=== PATIENT | male | born 1990 | race Hispanic/Latino ===

== ENCOUNTER 2017-05-15 21:14 | Emergency (ER) | payer OTHER ==
[2017-05-15 21:56] LABS: Bilirubin Negative (Negative); Blood, Urine Negative (Negative); Clarity CLEAR (Clear); Glucose, Urine (Dipstick) Negative (Negative); Leukocyte Negative (Negative); Nitrite Negative (Negative); Protein, Urine (Dipstick) Negative (Neg-Trace); Specific Gravity, Urine 1.014 (1.002-1.036); pH, Urine 7.5 (5.0-9.0)
[2017-05-15 22:08] LABS: #Basophils 0.1 thou/uL (0.0-0.2); #Eosinphils 0.1 thou/uL (0.0-0.7); #Lymphocytes 3.2 thou/uL (1.20-3.40); #Monocytes 0.6 thou/uL (0.11-0.59); %Basophils 1.2 % (0.0-1.0); %Eosinophils 1.5 % (0.0-10.0); %Lymphocytes 39.8 % (21.0-51.0); %Monocytes 7.5 % (0.0-10.0); Hemoglobin 16.7 g/dL (14.0-18.0); Mean Corpuscular HGB CONC 34.7 g/dL (32.0-36.0); Mean Corpuscular Hemoglobin 35.1 pg (27.0-31.0); Mean Platelet Volume 8.6 fL (7.4-10.4); Platelet Count 241 thou/uL (130-400); RBC Distribution Width 11.6 % (11.5-14.5); Red Blood Cell (RBC) Count 4.74 mill/uL (4.70-6.10)
[2017-05-15 22:33] LABS: ALT (SGPT) 37 U/L (8-55); AST (SGOT) 31 U/L (5-34); Albumin 4.6 g/dL (3.5-5.0); Alkaline Phosphatase 62 U/L (40-150); Anion Gap 15 mmol/L (10-20); BUN (Urea Nitrogen) 13 mg/dL (8.9-20.6); Bilirubin, Total 0.4 mg/dL (0.2-1.2); Calc. Creatinine Clearance 0 mL/min (70-130); Calcium 9.6 mg/dL (7.8-10.44); Carbon Dioxide 24 mmol/L (22-29); Chloride 102 mmol/L (98-107); Estimated GFR-MDRD 88; Globulin 3.4 g/dL (2.4-3.5); Glucose 94 mg/dL (70-105); Potassium 3.9 mmol/L (3.5-5.1); Sodium 137 mmol/L (136-145)
--- NOTE | 2017-05-15 23:07 | CT ---
CT ABDOMEN AND PELVIS WITHOUT CONTRAST 05/15/17 PROVIDED CLINICAL HISTORY: Left flank pain. FINDINGS: The visualized lung bases are free of significant opacity. The solid abdominal organs are suboptimally evaluated with out IV contrast and demonstrate an unremar kable unenhanced CT appearance. No evidence for urinary tract calculi or hydronephrosis. No bowel dilatation, inflammatory fat stranding, free fluid, or free air apparent. The appendix appea rs normal. The osseous structures demonstrate no concerning osteoblastic or osteolytic lesions. IMPRESSION: No evidence for urinary tract calculi or hydronephrosis. POS: [facility]
== END 2017-05-16 00:36 | disposition home or self-care (01) ==
LOC: ERS 21:14
DX: M54.5 Low back pain (principal); F41.9 Anxiety disorder, unspecified; F31.9 Bipolar disorder, unspecified
CPT/HCPCS: 36415; 36416; 74176; 80053; 81003; 85025

== ENCOUNTER 2017-07-31 20:22 | Inpatient (IN) | payer OTHER ==
[2017-07-31 22:00] LABS: #Eosinphils 0.1 thou/uL (0.0-0.7); #Lymphocytes 1.5 thou/uL (1.20-3.40); #Monocytes 0.4 thou/uL (0.11-0.59); #Neutrophils 10.4 thou/uL (1.40-6.50); %Basophils 0.2 % (0.0-1.0); %Eosinophils 0.6 % (0.0-10.0); %Lymphocytes 11.9 % (21.0-51.0); %Neutrophils 84.3 % (42.0-75.0); Hemoglobin 14.6 g/dL (14.0-18.0); Mean Corpuscular Hemoglobin 33.6 pg (27.0-31.0); Mean Platelet Volume 7.9 fL (7.4-10.4); Platelet Count 396 thou/uL (130-400); RBC Distribution Width 11.6 % (11.5-14.5); Red Blood Cell (RBC) Count 4.35 mill/uL (4.70-6.10); White Blood Cell (WBC) Count 12.4 thou/uL (4.8-10.8)
[2017-07-31 22:17] LABS: Anion Gap 14 mmol/L (10-20); BUN (Urea Nitrogen) 11 mg/dL (8.9-20.6); Calc. Creatinine Clearance 0 mL/min (70-130); Calcium 9.2 mg/dL (7.8-10.44); Carbon Dioxide 25 mmol/L (22-29); Chloride 105 mmol/L (98-107); Estimated GFR-MDRD 85; Glucose 114 mg/dL (70-105); Magnesium 1.9 mg/dL (1.6-2.6); Potassium 3.5 mmol/L (3.5-5.1); Sodium 140 mmol/L (136-145)
--- NOTE | 2017-07-31 23:12 | CT ---
CT OF HEAD NONCONTRAST: 07/31/17 INDICATION: Headache. FINDINGS: Ventricular system is normal in size. Septum pellucidum and third ventricle are midline. No intracran ial hemorrhage, mass effect or midline shift. Mild mucosal thickening seen within the paranasal sinus es. IMPRESSION: No acute intracranial abnormalities. POS: [facility]
--- NOTE | 2017-08-01 02:51 | HP ---
DATE OF ADMISSION: 08/01/2017 CHIEF COMPLAINT: Numbness of the face and weakness. 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 The patient was in his usual state of health until 2 weeks ago. He had a viral fe nahid with cough, nausea, vomiting, body pains, typical flu symptoms and following this and since last Saturday, he noticed swelling in his neck and following which he was noting he has extreme difficulty o pening his mouth wide or working with his upper lips to hold on to this jaw and having some difficult y eating with drooling of oral secretions. This has been progressively getting worse since last ay. Until today, he went to his primary care physician who suggested the patient to go to the ER for further evaluation. When the patient was seen in the ER, he was having rash on his face which accor ding to him is getting worse for the past 2 weeks and the rash is typical of a lupus rash with erythe matous margins. He has a past history of vasculitis as described above. The patient had a CT of the head to rule out any evidence of acute stroke, which was negative and Dr. Glass has been consulted fr om the ER who was suggesting for evaluation of a multiple sclerosis. On further questioning, he also complained of increased cold intolerance and he has been feeling excessively cold and tired and very sleepy for the past few days. He does have a strong family history of thyroid problems in his mothe r's side. He denies having any nausea, vomiting, no diarrhea, no constipation. He does have a severe headache. He rates the headache as 7/10 in intensity, which is progressively getting worse and he tried takin g Excedrin which was helping the headaches. He denies having any dizziness or vision changes. He co ntinues to have problems with smell and taste on his tongue. PAST MEDICAL HISTORY: Kawasaki disease 1 years old. PAST SURGICAL HISTORY: None. SOCIAL HISTORY: No smoking. No history of alcohol, no history of illicit drug use. He lives with h is mother. FAMILY HISTORY: No significant family history of coronary artery disease as his father is adopted, b ut otherwise father is healthy and does not have any acute medical issues. On the mother's side, the patient has a history of breast cancer and the mother's sister who recently, but otherwise she also has a history of thyroid runs in their family. REVIEW OF SYSTEMS: All 12 systems are reviewed with the patient thoroughly and found to be negative except the ones described in the HPI. PHYSICAL EXAMINATION: VITAL SIGNS: Blood pressure is 128/80, heart rate is 88, respirations 18, saturation 98%. GENERAL: The patient is seen lying in the bed supine, does not appear to be in acute distress. CARDIOVASCULAR: S1, S2 normal. No murmurs, rubs or gallops. HEENT: Atraumatic, normocephalic. PERRLA. Extraocular movements were intact, but does have erythem a of the eyes. The patient wears contacts. Skin on the face has erythema bilaterally on the cheeks with erythematous margins and central clearing. Oral cavity is normal with no evidence of any tonsil lar enlargements. CARDIOVASCULAR: S1, S2 normal. No murmurs, rubs or gallops. LUNGS: Bilateral air entry was equal. No wheezing, no crackles. NECK: No thyromegaly. Small lymph node was noted on the left side of the neck anteriorly, otherwise no thyroid enlargement was noted. CENTRAL NERVOUS SYSTEM: Cranial nerve examination II through XII were intact. There is focal defici t on the face. The patient was having some paresthesias and weakness of his upper and lower lips marcelino ble to approximate the lips to hold straw and has a weak suction according to the patient. LYMPHADENOPATHY: No generalized lymph nodes were noted. PSYCHIATRIC: No signs of suicidal ideation. No signs of abdulaziz. No signs of depression. LABORATORY DATA: WBC 12.4, hemoglobin is 14.6, hematocrit is 44.2, platelets are 396. Sodium is 140 , potassium 3.5, chloride is 105, BUN is 11, creatinine 1.04. ESR was noted to be 14. CT of the head was negative for any intracranial hemorrhage. ASSESSMENT: 1. Possible transient ischemic attack. 2. Possible multiple sclerosis. 3. Possible thyroid disease. 4. Possible vasculitis or lupus. PLAN: 1. The patient has multiple possibilities based on his current presentation. Consulted Neurology be cause of the complex case who suggested the patient to be evaluated for multiple sclerosis. Plan to do an MRI of the brain and the cervical spine with and without contrast. We will closely monitor the patient overnight with neuro checks and will do a speech evaluation in the morning. 2. The patient has a history of vasculitis in the childhood so need to evaluate. We will do an SAMMIE and double stranded DNA antibodies to look for any evidence of lupus or any systemic vasculitis. 3. The patient will be evaluated for thyroid problem which has signs of cold intolerance and thicken ed dry skin. We will do a TSH and free T4. 4. Patient has elevated white cells. We will do his inflammatory workup with a CRP and procalcitoni n and ESR. 5. DVT prophylaxis is Lovenox. I spent 75 minutes with this patient.
[2017-08-01] MEDS ORDERED: Acetaminophen 325 MG TAB PO PRN (05:09)
[2017-08-01] MEDS ORDERED: Ondansetron ODT 4 MG TAB PO PRN (05:09)
[2017-08-01] MEDS ORDERED: hydrALAZINE 20 MG/ML VIAL SLOW IVP PRN (05:09)
[2017-08-01] MEDS ORDERED: HYDROcodone/Acetaminophen 5/325 mg Tablet PO PRN (05:09)
[2017-08-01 06:42] VITALS: BMI 26.9
[2017-08-01] MEDS ORDERED: Enoxaparin Sodium 40 MG/0.4 ML SYRINGE SC SCH (09:00)
[2017-08-01] MEDS ORDERED: Famotidine 20 MG TAB PO SCH (09:00)
[2017-08-01] MEDS ORDERED: Aspirin 81 mg Enteric Coated Tablet PO SCH (09:00)
--- NOTE | 2017-08-01 10:53 | MRI ---
PRE AND POSTCONTRAST ENHANCED MRI IMAGES BRAIN: HISTORY: Weakness, numbness upper lip. FINDINGS: Pre- and postcontrast-enhanced MRI images of the brain obtained. Images demonstrate no evidence of areas of diffusion restriction. No evidence of acute intracranial masses, hemorrhages, strokes, or contusions seen. The ventricles are of normal size. IMPRESSION: Unremarkable pre- and [id number] MRI images of the brain. POS: [facility]
--- NOTE | 2017-08-01 11:19 | MRI ---
MRI CERVICAL SPINE: HISTORY: Weakness, possible MS. FINDINGS: Multiplanar, multisequence, noncontrast-enhanced MRI images cervical spine obtained. Images obtained before and after administration of IV contrast. Images demonstrate the spinal cord to be unremarkable with no evidence of cord masses or lesions. C1-2, C2-3, C3-4, C4-5: Unremarkable. C5-6: No evidence of central disk protrusion seen. The right neural foramen is patent. There is mo derate left C5-6 neural foraminal narrowing due to uncovertebral and possible disk protrusion extendi ng to the left C5-6 neural foramen compressing the exiting left C6 nerve root. C6-7: There is a mild broad-based disk bulge. No evidence of significant central or neural foramina l narrowing is seen. C7-T1: Unremarkable. IMPRESSION: Left C5-6 foraminal disk-osteophyte complex extending into the left C5-6 neural foramen. POS: [facility]
[2017-08-01 11:35] LABS: CRP (Inflammatory) 3.49 mg/dL (= or < 0.5); Cardiac Risk 3.9 (Less than 4.5)
[2017-08-01 11:49] LABS: Free T4 (Free Thyroxine) 0.85 ng/dL (0.70-1.48); Thyroid Stimulating Hormone 2.2795 uIU/mL (0.35-4.94)
[2017-08-01 12:00] LABS: Folate (Folic Acid) 7.9 ng/mL (7.0-31.4)
[2017-08-01] MEDS ORDERED: Gadobenate Dimeglumine 529 MG/1 ML (20ML VIAL) ONE (13:56)
[2017-08-01 17:00] LABS: Syphilis Antibody Nonreactive (Nonreactive); Syphilis Antibody Index 0.07 S/CO (<1.00 Non-Reactive)
[2017-08-01 17:01] LABS: HIV (1/2) Antibody/Antigen Non-Reactive (NonReactive); HIV 1/2 INDEX 0.15 S/CO (<1.00)
--- NOTE | 2017-08-01 18:17 | CON ---
DATE OF CONSULTATION: 08/01/2017 REASON: Bilateral facial palsy. HISTORY OF PRESENT ILLNESS: A 26-year-old patient, first admission to [facility] who has a history of Kawasaki disease at the age of 1. After that, no problems with his health until 2 weeks prior to admission when he developed fever with cough and some nausea, body aches. He had returned from a trip to [place] where he went to visit a park with a friend. He did not go fishing, does not remember any particular insect bite. After this brief respiratory illness, he recovered his health status until about 4 days before admission when he developed weakness of the facial area, both right and left side with inability to formally oppose his lips. Decrease in sensation of taste in his mouth and inability to hold fluids within his oral cavity and with drooling. Subsequently, developed skin eruption in the facial area. No headaches, no visual symptoms. No diplopia. No nasal symptoms or hearing problems, no tinnitus: No neck pain or cough or sputum production, no chest pain, no dyspnea. No abdominal pain or diarrhea. No genitourinary symptoms. No joint symptoms. No other skin disorder. Strength in upper and lower extremities is preserved. Cognitive function is preserved. PAST MEDICAL HISTORY: Kawasaki disease at the age of 1. PAST SURGICAL HISTORY: Negative. 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 Lives in town with family. No smoking history. He is sexually active with a girlfriend. No drug use. FAMILY HISTORY: Noncontributory. ALLERGIES: Negative. CURRENT MEDICATIONS: Tylenol, Ecotrin, Lipitor, Pepcid, Apresoline, Zofran. PHYSICAL EXAMINATION: VITAL SIGNS: T-max 99, blood pressure 113/72, pulse 100, respirations 16-20, O2 sat 98%. SKIN: Shows papular pustular rash in the face extending from the forehead to the cheeks and mental area. Most of those lesions are concentrated on the right side. No lymphadenopathy. HEENT: Ocular movements conjugate. Pupils are equal, conjunctivae normal. Nasal passages patent. Oral cavity was normal. The patient has difficulty in holding air within his oral cavity. NECK: Supple, no jugular vein distention. LUNGS: Clear to auscultation and percussion. HEART: Normal. ABDOMEN: Soft, not distended or tender. No ascites. No bladder distention. No joint inflammatory activity. Moves extremities equally. His cognitive function appears to be intact. LABORATORY DATA: White cell count 12.4, hemoglobin 14, platelets 296 with a predominance of mature neutrophils. Sed rate 14 and chemistry normal except for glucose 114 and CRP 3.49. Liver profile was not done. TSH 2.27. The patient had a brain MRI which was normal. Cervical spine MRI which other than osteophytes was normal. ASSESSMENT: Bilateral facial palsy, other cranial nerve impairment also likely in view of the taste abnormalities of subacute duration following febrile viral illness, now with a papular pustular skin rash in the facial area. DISCUSSION: Differential diagnosis includes bulbar encephalitis associated with enteroviral infection. EBV infection or Lyme disease versus an atypical form of Guillain-Hoffmeister syndrome with bulbar manifestation. Botulism less likely , myasthenia gravis less likely, but not ruled out. At this point, we will check CSF evaluation and EBV serology, enterovirus PCR from nasopharyngeal secretions and stool. Lyme serology. MTDD
--- NOTE | 2017-08-01 18:30 | PDOC.EVN ---
Event Note - Event Note Event Note: Patient seen and examined. Chart reviewed. Plan d/w Dr Glass/Julia.
--- NOTE | 2017-08-01 18:37 | PDOC.PN ---
- Subjective Encounter Start Date: 08/01/17 Encounter Start Time: 16:30 Patient seen and examined. No new complaints. No overnight events. No new focal deficits. - Objective Resuscitation Status: Resuscitation Status FULL:Full Resuscitation MAR Reviewed: Yes Vital Signs & Weight: Vital Signs (12 hours) Temp Pulse Pulse Pulse Resp BP BP 08/01/17 15:39 98.6 F 92 16 08/01/17 13:30 83 91 100/66 133/80 08/01/17 11:58 98.4 F 100 20 08/01/17 08:00 99 F 107 H 16 08/01/17 07:35 99 F 107 H 16 BP Pulse Ox 08/01/17 15:39 108/76 96 08/01/17 13:30 08/01/17 11:58 113/72 98 08/01/17 08:00 08/01/17 07:35 114/69 97 I&O: 07/31/17 08/01/17 08/02/17 06:59 06:59 06:59 Intake Total 200 Balance 200 Result Diagrams: 07/31/17 21:47 07/31/17 21:47 EKG Reviewed by me: Yes (Tele SR) Phys Exam - Physical Examination Constitutional: NAD Respiratory: no wheezing, no rales, no rhonchi, clear to auscultation bilateral Cardiovascular: RRR, no rub no heaves/pulsations Gastrointestinal: soft, non-tender, no distention, positive bowel sounds Musculoskeletal: no edema, pulses present Neurological: non-focal, moves all 4 limbs No new focal findings Psychiatric: normal affect, A&O x 3 Skin: no rash Dx/Plan - Plan DVT proph w/SCDs IMPRESSION: 1. Bilateral facial palsy 2. Recent viral illness 3. Taste abnormalities 4. h/o Kawasaki disease 5. Elevated inflammatory markers 6. Leukocytosis 7. Diarrhea PLAN: * ID/Neuro input appreciated - Case d/w with both * EBV/ Enterovirus panel ordered * Lumbar puncture in AM * I d/w Neurosurgery storage consultant regarding abnormal Cervical spine findings - No neurosurgical input needed * Cont to monitor * DC Aspirin/Lovenox * Ambulate * Check stool for Campylobacter Laboratory Tests 08/01/17 08/01/17 08/01/17 10:45 10:45 10:45 C-Reactive Protein 3.49 H Vitamin B12 1120 H Folate 7.90 Free T4 0.85 TSH 3rd Generation 2.2795 Syphilis IgG/IgM Ab HIV 1&2 Antigen & Ab 08/01/17 08/01/17 16:10 16:10 C-Reactive Protein Vitamin B12 Folate Free T4 TSH 3rd Generation Syphilis IgG/IgM Ab Nonreactive HIV 1&2 Antigen & Ab Non-Reactive Review of Systems - Review of Systems Constitutional: negative: fever, chills, sweats, weakness, malaise, other Respiratory: negative: Cough, Dry, Shortness of Breath, Hemoptysis, SOB with Excertion, Pleuritic Pain, Sputum, Wheezing Cardiovascular: negative: chest pain, palpitations, orthopnea, paroxysmal nocturnal dyspnea, edema, light headedness, other Gastrointestinal: Diarrhea. negative: Nausea, Vomiting, Abdominal Pain, Constipation, Melena, Hematochezia, Other Genitourinary: negative: Dysuria, Frequency, Incontinence, Hematuria, Retention , Other - Medications/Allergies Allergies/Adverse Reactions: Allergies Allergy/AdvReac Type Severity Reaction Status Date / Time No Known Drug Allergies Allergy Verified 08/01/17 05:34 Medications: Current Medications Acetaminophen (Tylenol) 650 mg PO Q4H PRN PRN Reason: Headache/Fever or Pain Hydrocodone Bitart/Acetaminophen ([place] 5/325) 1 tab PO Q4H PRN PRN Reason: Moderate Pain (4-6) Atorvastatin Calcium (Lipitor) 40 mg PO HS LAURA Hydralazine HCl (Apresoline) 10 mg SLOW IVP Q4H PRN PRN Reason: BP > 220/110 Ondansetron HCl (Zofran Odt) 4 mg PO Q6H PRN PRN Reason: Nausea/Vomiting
[2017-08-01] MEDS ORDERED: Atorvastatin Calcium 40 MG TAB PO SCH (21:00)
[2017-08-02 06:07] LABS: #Eosinphils 0.2 thou/uL (0.0-0.7); #Lymphocytes 2.3 thou/uL (1.20-3.40); #Monocytes 0.8 thou/uL (0.11-0.59); #Neutrophils 4.6 thou/uL (1.40-6.50); %Basophils 0.6 % (0.0-1.0); %Lymphocytes 29.2 % (21.0-51.0); %Monocytes 9.8 % (0.0-10.0); %Neutrophils 58.4 % (42.0-75.0); Hemoglobin 14.2 g/dL (14.0-18.0); Mean Corpuscular Hemoglobin 32.6 pg (27.0-31.0); Mean Corpuscular Volume 98.8 fl (80.0-94.0); Mean Platelet Volume 7.7 fL (7.4-10.4); Platelet Count 373 thou/uL (130-400); RBC Distribution Width 11.6 % (11.5-14.5); Red Blood Cell (RBC) Count 4.36 mill/uL (4.70-6.10); White Blood Cell (WBC) Count 7.9 thou/uL (4.8-10.8)
[2017-08-02 06:34] LABS: Anion Gap 11 mmol/L (10-20); BUN (Urea Nitrogen) 9 mg/dL (8.9-20.6); Calc. Creatinine Clearance 124 mL/min (70-130); Calcium 9.4 mg/dL (7.8-10.44); Carbon Dioxide 27 mmol/L (22-29); Chloride 103 mmol/L (98-107); Estimated GFR-MDRD Greater than 90; Glucose 106 mg/dL (70-105); Potassium 3.9 mmol/L (3.5-5.1); Sodium 137 mmol/L (136-145)
[2017-08-02] MEDS ORDERED: Multivit, Therapeutic 1 TAB PO SCH (09:00)
[2017-08-02 10:40] LABS: CSF Source CSF; Clarity Clear (Clear); RBC Count - Manual 0 /cumm (None Seen); Tube # 4; WBC/NonHematics Count - Manual 2 /cumm (0-5)
[2017-08-02 10:55] LABS: CSF, Glucose 59 mg/dl (40-70); CSF, Protein 29 mg/dL (15-40)
--- NOTE | 2017-08-02 11:13 | RAD ---
FLUOROSCOPICALLY GUIDED LUMBAR PUNCTURE: History: Guillan-Jewell work-up. Radiation dosimetry: 0.4 minutes fluoroscopy time, AK of 208 micro tineo. Technique: Informed consent was obtained. The right L2-3 interlaminar space was localized using fluoroscopy. The overlying skin was prepped and draped in the usual sterile manner. A 1% Lidocaine solution was used to anesthetize the overlying soft tissues. A 22 gauge spinal needle was placed into the subarachnoid space. A total of 12 ml of clear cerebral spinal fluid was removed without difficulty. The needle was then removed. The patient encountered no difficulties immediately after exam. IMPRESSION: Successful fluoroscopically guided lumbar puncture. POS: [facility]
[2017-08-02] MEDS ORDERED: Acetaminophen 500 MG TAB PO PRN (12:03)
[2017-08-02] MEDS ORDERED: HYDROcodone/Acetaminophen 7.5/325 mg Tablet PO PRN (12:05)
[2017-08-02] MEDS ORDERED: Senokot 8.6 MG TAB PO PRN (12:06)
[2017-08-02] MEDS ORDERED: Polyethylene Glycol 3350 17 GM Packet PO PRN (12:06)
[2017-08-02 14:26] LABS: ANA Symphony (Qualitative) Negative (Negative); dsDNA IgG Antibody 2.1 IU/mL (<10 Negative)
--- NOTE | 2017-08-02 14:59 | PRG ---
DATE OF SERVICE: 08/02/2017 SUBJECTIVE: Mr. Carbone had a spinal tap, results are discussed below. He is having pain now when he c hews more localized to the left TMJ area. Strength is a bit better in the facial area. He was able to suck from a straw when I asked him to. No cough, no headaches, no visual symptoms. No sore throa t, odynophagia, dysphagia. No vomiting, no respiratory symptoms or abdominal pain. Voiding without difficulty. He has been afebrile. His lungs are clear. The patient has tenderness on palpation of the left TMJ. No dental tenderness. No mandibular swelling. He is able to close his mouth and blow air inside the mouth without leakage. OBJECTIVE: NECK: Supple. LUNGS: Symmetric clear breath sounds. CARDIOVASCULAR: S1, S2, regular rate. ABDOMEN: Soft and not distended. EXTREMITIES: Strength in upper and lower extremities is 5/5. Cognitive function appears to be intac t. LABORATORY DATA: CSF evaluation showed 2 WBCs, normal glucose and normal protein. The syphilis and HIV serology nonreactive. Repeat chemistry normal. White cell count is at 7.9, hemoglobin 14, plate lets 373. ASSESSMENT: Bilateral facial palsy which seems to be improving, pain in the left TMJ. Again, differ ential diagnoses includes bulbar encephalitis associated with enteroviral infection, which is improvi ng. EBV infection or Lyme disease and a typical form of Guillain-Nesbit is less likely in view of th e findings in the CSF, consider discharge planning.
[2017-08-02 15:41] VITALS: BP 110/67; TEMP 98.8
--- NOTE | 2017-08-02 17:31 | PRG ---
DATE OF SERVICE: 08/02/2017 SUBJECTIVE: Mr. Carbone is a pleasant 26-year-old male who presented with 4-day history of bi lateral facial weakness. He had a lumbar puncture done today which showed normal glucose and protein and 0-2 wbc's on the CSF. He reports of no change in his symptoms since being noted in the hospital . OBJECTIVE: VITAL SIGNS: Blood pressure of 119/77, pulse of 85, temperature 97.6, respirations of 20, O2 sats 96 % on room air. GENERAL: Well-developed, well-nourished male, in no apparent distress. RESPIRATORY: Clear to auscultation bilaterally. CARDIOVASCULAR: Regular rate and rhythm. NEUROLOGIC: Essentially unchanged when compared to yesterday. LABORATORY DATA: Reviewed which included CBC, BMP, B12, folate, TSH, free T4, sed rate, CSF studies, SAMMIE screen, which is all essentially normal. IMPRESSION: Bilateral facial weakness. PLAN: Mr. Carbone is a pleasant 26-year-old male who presented with bilateral facial weakness. Given that he has a normal CSF studies, Guillain-Roanoke syndrome or atypical Guillain-[place]an[place] syndrome have been excluded. It is also less likely that he has MS given that he has a normal MRI brain and C-spine. I have ordered a serum YAZAN level, which is pending. I will obtain myasthenia panel and Ant i-MuSK antibody as outpatient. I have started him on Mestinon 60 mg 3 times a day as outpatient. He will follow up in my clinic in 2 weeks post-discharge.
--- NOTE | 2017-08-02 20:29 | CON ---
DATE OF CONSULTATION: 08/02/2017 REFERRING PROVIDER: Iker Singh M.D. REASON FOR CONSULTATION: Bilateral facial weakness. HISTORY OF PRESENT ILLNESS: Mr. Carbone is a pleasant 26-year-old male who has been concerned for evaluation of bilateral facial weakness. The patient reports that approximately 4 days ago he s tarted noticing weakness on both sides of the face. He was having difficulty with opening his eyes. He was having difficulty with frowning. He was having difficulty with raising his eyebrows. He was having difficulty with puckering. When he tried to eat, he noticed that he was having difficulty wi th closing his lips together and the fluid would drain out from the corner of his mouth. He also sta rted noticing pain around the jaw area. As the symptoms were getting worse, he had seen his primary care physician who had actually called me and I have advised her to send patient to the emergency [facility]. He reports that about 2-3 weeks ago, he had an episode of gastroenteritis. He was also having a rash on his face over the past 2 weeks. He denied having any double vision, dysphagia, numbness, tin gling or weakness in the upper or lower extremities. He denied having difficulty with balance. He d enies headache, chest pain, palpitations or dyspnea. PAST MEDICAL HISTORY: Significant for history of Kawasaki disease. PAST SURGICAL HISTORY: None significant. SOCIAL HISTORY: He denies smoking, alcohol use, or illicit drug use. He is currently living with hi s mother. FAMILY HISTORY: None significant. CURRENT MEDICATIONS: Please review MAR. ALLERGIES: No known drug allergies. REVIEW OF SYSTEMS: As mentioned, which was negative. PHYSICAL EXAMINATION: VITAL SIGNS: Blood pressure of 119/77, pulse of 85, temperature of 97.6, respirations of 20 and O2 s ats 96% on room air. GENERAL: A well-developed, well-nourished male in no apparent distress. RESPIRATORY: Clear to auscultation bilaterally. CARDIOVASCULAR: Regular rate and rhythm. NEUROLOGIC: Mental status: The patient is awake, alert and oriented x3. Speech and language: Flue nt speech. Cranial nerves: Pupils are 3 mm and reactive. Visual beatty are intact. External muscl es are intact. There may be a slight bilateral ptosis noted. He has bilateral lower motor neuron ty pe facial weakness, a little more worse on the left compared to the right. Tongue and uvula are midl ine. Motor exam showed normal tone and bulk with a 5/5 strength in both the upper and lower extremit ies. Sensory: Sensation is intact and symmetric. Deep tendon reflexes are 2+ reflexes in both uppe r and lower extremities. Babinski: Plantar responses flexion bilaterally. Coordination intact to f [id number] tapping bilaterally. LABORATORY DATA: Labs are reviewed, which included CBC, CMP, SAMMIE, RPR, and HIV, which is significant for WBC of 12.4. C-reactive protein of 3.49, otherwise unremarkable. IMAGING STUDIES: MRI brain with and without contrast and MRI C-spine with and without contrast were reviewed, which were essentially normal. IMPRESSION: Bilateral facial weakness. PLAN: Mr. Carbone is a pleasant 26-year-old male who presented with bilateral facial weakness . On exam, he has a lower motor neuron type bilateral facial weakness. After a lengthy discussion w ith the patient, it was noted that the patient did mention that the symptoms are better when he wakes up in the morning, but as soon as he wakes up the symptoms tends to appear and continues to progress as the day progresses. Given that he has a normal MRI brain and cervical spine, this is less likely to be infectious or structural in cause. Given that he has normal reflexes in both upper and lower extremities, it is very less likely to be a Guillain-[place]opee syndrome or atypical Guillain-Chicopee. One of my biggest concern is that he may have bulbar myasthenia. I agree with obtaining lumbar puncture to rule out infectious etiology. I will recommend obtaining myasthenia panel and anti-MuSK antibody as well as starting him on Mestinon 60 mg 1 tablet every 6 hours 3 times a day while awake. I will s ee him in my clinic in 2 weeks post-discharge. Thank you for the consultation.
--- NOTE | 2017-08-03 11:55 | DIS ---
DATE OF ADMISSION: 07/31/2017 DATE OF DISCHARGE: 08/02/2017 DISCHARGE DISPOSITION: Home. FOLLOWUP: 1. Follow up with Dr. Hermelinda Arellano in 1 week. 2. Follow up with Dr. Dumont and Dr. Renetta Glass in 1 week. INPATIENT CONSULTANTS: Infectious Disease, Dr. Dumont; and Neurology, Dr. Glass. INPATIENT PROCEDURES: The patient underwent lumbar puncture on 08/02/2017. TESTS PENDING AT DISCHARGE: 1. Enterovirus PCR. 2. Lyme disease. 3. Angiotensin converting enzyme level. 4. The patient will get a myasthenic gravis workup as outpatient. BRIEF HOSPITAL COURSE: Patient is a 26-year-old male who presented to the hospital with rimma ateral facial weakness. Please refer to the history and physical dated 08/01/2017 for further detail s. The patient was admitted to the stroke unit with the above diagnosis. He recently had a viral infect ion. He was evaluated by Neurology and Infectious Disease, Dr. Dumont. CSF studies were normal. MRI of the brain and cervical spine did not show any acute findings. His cervical spine MRI showed mode rate left C5-C6 neural foraminal narrowing as well as mild broad-based disk bulge in C6-C7. I discus sed with Neurosurgery. They recommended no intervention at this point. He will follow up with Neuro logy, Dr. Glass as outpatient. He probably has myasthenia gravis for which he has been started on Mest inon per Neurology. He will get myasthenia panel as outpatient. The rest of the test is pending at this time. His syphilis, HIV and SAMMIE testing has been negative. Vitamin B12 and folic acid were nor mal. TSH and free T4 were normal. CRP was 3.46. FINAL DIAGNOSES: 1. Bilateral facial palsy of unclear etiology. 2. Recent viral illness. 3. Taste abnormality. 4. History of Kawasaki disease during childhood. 5. Elevated inflammatory markers. 6. Leukocytosis of unclear etiology. 7. Diarrhea, which has resolved. No stool samples were available during the hospital stay. Plan of care was discussed with the patient in detail. He stated understanding.
[2017-08-05 14:19] LABS: Lyme IgG/IgM AB <0.91 ISR (0.00-0.90)
== END 2017-08-02 17:55 | disposition home or self-care (01) | DRG 74 ==
LOC: ERS 20:22 → OBSVTOIN 23:38 → 2SE 23:38
PROVIDERS: ADMIT Family Medicine; ATTEND Family Medicine
PROC: 009U3ZX Drainage of Spinal Canal, Percutaneous Approach, Diagnostic (ICD-10-PCS; principal; 2017-08-02)
DX: G51.0 Bell's palsy (principal); G70.00 Myasthenia gravis without (acute) exacerbation; R29.810 Facial weakness; G35 Multiple sclerosis
CPT/HCPCS: 36415; 62270; 70450; 70553; 72156; 80048; 80061; 82164; 82607; 82746; 82945; 83735; 84157; 84439; 84443; 85025; 85652; 86038; 86140; 86225; 86618; 86780; 87389; 87498; 87633; 89051; A9579; G8978-GP-CH; G8979-GP-CH; G8980-GP-CH; G8987-GO-CH; G8988-GO-CH; G8989-GO-CH; G8996-GN-CI; G8997-GN-CH; J1650

== ENCOUNTER 2017-12-18 16:24 | Inpatient (IN) | payer OTHER ==
--- NOTE | 2017-12-18 17:26 | RAD ---
CHEST 2 VIEWS: HISTORY: Shortness of breath. COMPARISON: None. FINDINGS: Lungs are clear. No pneumothorax or effusion. Cardiac silhouette and mediastinal contour within nor mal limits. IMPRESSION: No acute intrathoracic abnormality. POS: [facility]
[2017-12-18 17:33] LABS: #Basophils 0.1 thou/uL (0.0-0.2); #Eosinphils 0.1 thou/uL (0.0-0.7); #Lymphocytes 1.5 thou/uL (1.20-3.40); #Monocytes 0.5 thou/uL (0.11-0.59); #Neutrophils 6.3 thou/uL (1.40-6.50); %Basophils 0.8 % (0.0-1.0); %Eosinophils 0.8 % (0.0-10.0); %Lymphocytes 17.5 % (21.0-51.0); %Monocytes 5.3 % (0.0-10.0); %Neutrophils 75.5 % (42.0-75.0); Hemoglobin 16.7 g/dL (14.0-18.0); Mean Corpuscular Hemoglobin 34.7 pg (27.0-31.0); Mean Corpuscular Volume 99.1 fL (78.0-98.0); Mean Platelet Volume 8.2 fL (7.4-10.4); Platelet Count 193 thou/uL (130-400); RBC Distribution Width 11.6 % (11.5-14.5); Red Blood Cell (RBC) Count 4.83 mill/uL (4.70-6.10); White Blood Cell (WBC) Count 8.4 thou/uL (4.8-10.8)
[2017-12-18 17:52] LABS: Anion Gap 13 mmol/L (10-20); BUN (Urea Nitrogen) 12 mg/dL (8.9-20.6); Calc. Creatinine Clearance 0 mL/min (70-130); Calcium 9.4 mg/dL (7.8-10.44); Carbon Dioxide 23 mmol/L (22-29); Chloride 104 mmol/L (98-107); Estimated GFR-MDRD 61; Glucose 102 mg/dL (70-105); Potassium 4.5 mmol/L (3.5-5.1); Sodium 135 mmol/L (136-145)
[2017-12-18 21:44] LABS: Bilirubin Negative (Negative); Blood, Urine Negative (Negative); Clarity CLOUDY (Clear); Glucose, Urine (Dipstick) Negative (Negative); Leukocyte Negative (Negative); Nitrite Negative (Negative); Protein, Urine (Dipstick) Negative (Neg-Trace); Specific Gravity, Urine 1.014 (1.002-1.036); pH, Urine 7.5 (5.0-9.0)
[2017-12-18 21:56] LABS: Bacteria/HPF 3+ HPF (None Seen); Crystals/HPF 1+ AMORPH URATES HPF (Negative); Hyaline Casts/LPF NONE SEEN LPF (0-3 Hyaline); RBC/HPF None Seen HPF (0-3); Squamous Epithelial None Seen HPF (0-3); WBC/HPF None Seen HPF (0-3)
[2017-12-18] MEDS ORDERED: Acetaminophen 325 MG TAB PO PRN (22:59)
[2017-12-18] MEDS ORDERED: Ondansetron HCl/PF 4 MG/2 ML Vial IVP PRN (22:59)
[2017-12-18] MEDS ORDERED: Pyridostigmine Bromide IR 60 MG TAB PO SCH (23:00)
[2017-12-18] MEDS ORDERED: Pyridostigmine Bromide IR 60 MG TAB PO PRN (23:05)
[2017-12-18 23:17] VITALS: BMI 29.3
[2017-12-19] MEDS: Sodium Chloride 0.9% 1,000 ML IV SCH ×3 (00:56→20:49)
[2017-12-19 05:05] LABS: #Basophils 0.1 thou/uL (0.0-0.2); #Eosinphils 0.1 thou/uL (0.0-0.7); #Lymphocytes 2.4 thou/uL (1.20-3.40); #Monocytes 0.8 thou/uL (0.11-0.59); #Neutrophils 4.1 thou/uL (1.40-6.50); %Eosinophils 1.6 % (0.0-10.0); %Lymphocytes 32.1 % (21.0-51.0); %Monocytes 10.8 % (0.0-10.0); %Neutrophils 54.5 % (42.0-75.0); Hemoglobin 15.7 g/dL (14.0-18.0); Mean Corpuscular HGB CONC 34.6 g/dL (32.0-36.0); Mean Corpuscular Hemoglobin 34.2 pg (27.0-31.0); Mean Corpuscular Volume 99.1 fL (78.0-98.0); Mean Platelet Volume 8.4 fL (7.4-10.4); Platelet Count 179 thou/uL (130-400); RBC Distribution Width 11.6 % (11.5-14.5); White Blood Cell (WBC) Count 7.5 thou/uL (4.8-10.8)
[2017-12-19 05:24] LABS: Anion Gap 15 mmol/L (10-20); BUN (Urea Nitrogen) 14 mg/dL (8.9-20.6); Calc. Creatinine Clearance 113 mL/min (70-130); Calcium 9.1 mg/dL (7.8-10.44); Carbon Dioxide 24 mmol/L (22-29); Chloride 106 mmol/L (98-107); Estimated GFR-MDRD 74; Glucose 105 mg/dL (70-105); Sodium 141 mmol/L (136-145)
[2017-12-19] MEDS ORDERED: Mag-Al 1200 mg/1200 mg/30 ML UDCUP PO PRN (08:18)
[2017-12-19] MEDS ORDERED: Eucerin (Mineral Oil/Petrolatum,White) 30 gm Jar TOP PRN (08:18)
[2017-12-19] MEDS ORDERED: HYDROcodone/Acetaminophen 5/325 mg Tablet PO PRN (08:18)
[2017-12-19] MEDS ORDERED: Senokot 8.6 MG TAB PO PRN (08:18)
[2017-12-19] MEDS ORDERED: Temazepam 15 MG CAP PO PRN (08:18)
[2017-12-19] MEDS ORDERED: Milk Of Magnesia 30 ML UDCUP PO PRN (08:18)
[2017-12-19] MEDS ORDERED: Chloraseptic Spray 180 ml Bottle PO PRN (08:18)
[2017-12-19] MEDS ORDERED: Sodium Chloride 0.65% Nasal 44 ML BOT EA NARE PRN (08:18)
[2017-12-19] MEDS ORDERED: Loperamide HCl 2 MG CAP PO PRN (08:18)
[2017-12-19] MEDS ORDERED: Loratadine 10 MG TAB PO PRN (08:18)
[2017-12-19] MEDS ORDERED: hydrALAZINE 20 MG/ML VIAL SLOW IVP PRN (08:18)
[2017-12-19] MEDS ORDERED: Diabetic Tussin 200 MG/10 ML UDCUP PO PRN (08:18)
[2017-12-19] MEDS ORDERED: Artificial Tear Sol 15 ML BOT EA EYE PRN (08:18)
--- NOTE | 2017-12-19 08:44 | HP ---
PRIMARY CARE PHYSICIAN: Dr. Hermelinda Arellano. CODE STATUS: FULL CODE. TIME OF EVALUATION: 11:00 p.m. CHIEF COMPLAINT: Shortness of breath and generalized weakness. HISTORY OF PRESENT ILLNESS: This is a 27-year-old male patient recently diagnosed with myasthenia gr akash in 07/2017. The patient follows with Dr. Glass. He reported to him that he was having some diff iculty breathing with migraines and generalized weakness. Dr. Glass recommended the patient to come t o the ER. The symptoms are reported as mild to moderate, no clear triggers, no alleviating factors. As noted, the patient was taking Bactrim-DS for an infection in his left eye, has been on treatment for 5 days now. The symptoms have started gradually REVIEW OF SYSTEMS: Constitutional: No fever or chills. The patient reported generalized weakness h istory. Respiratory: The patient has no cough, sputum production, patient did report some chest tomas n, and increased shortness of breath. Cardiovascular: No chest pain or palpitations. Gastrointesti nal: No nausea, no vomiting, diarrhea or abdominal pain. 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 The patient reported headache and feeling lightheaded. Genitourinary: No burning on urination. Extremities: No leg swe lling. All other systems were reviewed and negative except for the findings mentioned above. PAST MEDICAL HISTORY: Positive for myasthenia gravis and migraine. PAST SURGICAL HISTORY: No surgical history. PSYCHIATRIC HISTORY: No history of suicidal ideation. He did report history of anxiety and bipolar disorders. SOCIAL HISTORY: No alcohol, no drugs, no smoking history. FAMILY HISTORY: Reported as negative by patient. ALLERGIES: No known drug allergies. REPORTED MEDICATIONS: Prednisone 10 mg daily as per patient and pyridostigmine 60 mg on a p.r.n. bas is for neurological symptoms. PHYSICAL EXAMINATION: VITAL SIGNS: On presentation, blood pressure 123/83 with heart rate 77, temperature 98.7, oxygen sat uration 96% on room air. GENERAL APPEARANCE: The patient is alert, oriented, not in acute distress. HEENT: Eyes: Normal conjunctivae. Moist oral mucosa. Anicteric. Left eye has . NECK: No JVD. RESPIRATORY: Bilateral air entry. No rales, no wheezing. Symmetric expansion. CARDIOVASCULAR: Normal rate, regular rhythm. No murmurs, no gallop, no edema. ABDOMEN: Soft, normal bowel sounds. MUSCULOSKELETAL: Baseline range of motion and strength. No tenderness. SKIN: Warm and intact. No pallor, no rash, no redness. Peripheral pulses are present. Capillary r efill seems to be intact. NEUROLOGIC: Baseline sensory. No evidence of any new focal weakness. Baseline speech. Cranial ner ves seem to be intact. PSYCHIATRIC: The patient is in good mood. No anxiety, oriented, optimal judgment. IMAGING: EKG was discussed with the performing physician from ER and shows sinus arrhythmia, heart r ate 76, DE 132, QRS 86, QT corrected 435. The chest x-ray was reviewed. The patient had no acute in trathoracic abnormalities. LABORATORY DATA: Labs were reviewed. The patient had white count 8.4, hemoglobin 16.7, MCV 99.1, pl atelet count 193. Sodium 135, potassium 4.5, carbon dioxide 23, anion gap 13, BUN 12, creatinine 1.3 8 and previous creatinine was 0.9 in 07/2017. Glucose 102, calcium 9.4. CK 117. UA was negative. ASSESSMENT AND PLAN: The patient will be placed in the hospital with the following medical problems. 1. Chest pain, unclear etiology, the patient has a history of myasthenia gravis, we will consult Dr. Glass, we will follow recommendations. home medication as per the patient's report. 2. Small infection on the left eyelid, we will continue Bactrim DS for another 3 days. 3. Deep venous thrombosis prophylaxis.
[2017-12-19] MEDS: Sulfameth/Trimethoprim DS 800-160mg TAB PO SCH ×2 (09:05→20:47)
[2017-12-19] MEDS: predniSONE 5 MG TAB PO SCH (09:05)
[2017-12-19] MEDS: Enoxaparin Sodium 40 MG/0.4 ML SYRINGE SC SCH (09:09)
[2017-12-19] MEDS: Famotidine 20 MG TAB PO SCH ×2 (09:09→20:48)
--- NOTE | 2017-12-19 11:49 | DIS ---
PRIMARY CARE PHYSICIAN: Dr. Hermelinda Arellano DATE OF ADMISSION: 12/18/2017 DATE OF DISCHARGE: 12/19/2017 DISCHARGE DISPOSITION: Home. PRIMARY DISCHARGE DIAGNOSES: Dyspnea, unclear etiology, ruled out cardiac and pulmonary etiology. SECONDARY DISCHARGE DIAGNOSES: Anxiety, depression, myasthenia gravis. PRIMARY PROCEDURE/OPERATION: None. RADIOLOGICAL INVESTIGATION: Chest x-ray normal. SIGNIFICANT LABORATORY DATA: WBC 7.5, hemoglobin 15.7, platelet 179. D-dimer less than 0.27. Sodium 141, potassium 4.0, BUN 14, creatinine 1.16, calcium 9.1. CK 117. Urinalysis normal. DISCHARGE MEDICATIONS: The patient will continue his previous home medication. Prednisone 10 mg p.o. daily, Mestinon 60 mg as directed. CONTRAINDICATIONS: None. CODE STATUS: FULL CODE. INPATIENT CONSULTANTS: Dr. Glass will evaluate this patient later on today. TEST RESULTS PENDING ON DISCHARGE: None. ALLERGIES: No known drug allergy. DISCHARGE PLAN: Post hospital, the patient is instructed to follow up with primary care physician and Dr. Glass on an outpatient basis. HOSPITAL COURSE: A 27-year-old male with the above-mentioned medical problem who was admitted by Dr. Cantor. Please see his H&P for further detail. The patient was admitted for dyspnea and chest discomfort. His echocardiogram was normal. His chest x-ray was normal. His D-dimer is negative. The patient did not have any further chest pain while in hospital. At this point, we are not suspecting any cardiopulmonary etiology for his dyspnea and we are also not suspecting that patient has any myasthenia gravis exacerbation. He was given IV fluid for his mild renal insufficiency that was also improved overnight with IV fluid. The patient is currently on room air. He does not have any wheezing or rales. He is completely normal. NEUROLOGIC: Neurology already consulted by admitting physician. After that, the patient can be discharged home later on today. VITAL SIGNS: Today temperature 97.4, pulse 61, respiratory rate 19, saturation 98% on room air, blood pressure 124/63, weight 187 pounds. GENERAL: The patient is currently alert, awake, no obvious acute distress. HEAD: Normocephalic, atraumatic. EYES: Pupils round, reactive to light. Extraocular muscle intact. LUNGS: Clear to auscultation without any rhonchi or rales. CARDIAC: S1, S2 regular without any murmur. ABDOMEN: Soft and benign. EXTREMITIES: No edema. NEUROLOGIC: Nonfocal examination. dr glass wanted to give IVIG so changed to inpt status and will give IVIG MTDD
--- NOTE | 2017-12-19 12:40 | PDOC.PN ---
- Subjective Encounter Start Date: 12/19/17 Encounter Start Time: 08:00 -: old records requested/rev Patient seen and examined. No new complaints. No overnight events - Objective Resuscitation Status: Resuscitation Status FULL:Full Resuscitation MAR Reviewed: Yes Vital Signs & Weight: Vital Signs (12 hours) Temp Pulse Resp BP Pulse Ox 12/19/17 11:36 98.1 F 79 18 117/71 97 12/19/17 08:00 97.4 F L 61 19 124/63 98 12/19/17 04:15 98.1 F 64 18 115/56 L 96 Weight Weight 187 lb 7 oz I&O: 12/18/17 12/19/17 12/20/17 06:59 06:59 06:59 Intake Total 510 240 Balance 510 240 Result Diagrams: 12/19/17 04:41 12/19/17 04:41 Radiology Reviewed by me: Yes EKG Reviewed by me: Yes Phys Exam - Physical Examination Constitutional: NAD HEENT: PERRLA, moist MMs, sclera anicteric Neck: no JVD, supple Respiratory: no wheezing, no rales, no rhonchi Cardiovascular: RRR, no significant murmur, no rub Gastrointestinal: soft, non-tender, no distention, positive bowel sounds Musculoskeletal: no edema, pulses present Neurological: non-focal, normal sensation, moves all 4 limbs Psychiatric: normal affect, A&O x 3 Skin: no rash, normal turgor Dx/Plan (1) Dyspnea Code(s): R06.00 - DYSPNEA, UNSPECIFIED Status: Acute (2) Anxiety and depression Code(s): F41.9 - ANXIETY DISORDER, UNSPECIFIED; F32.9 - MAJOR DEPRESSIVE DISORDER, SINGLE EPISODE, UNSPECIFIED Status: Chronic (3) Myasthenia gravis Code(s): G70.00 - MYASTHENIA GRAVIS WITHOUT (ACUTE) EXACERBATION Status: Chronic (4) Acute kidney injury Code(s): N17.9 - ACUTE KIDNEY FAILURE, UNSPECIFIED Status: Resolved - Plan cont current plan of care, plan discussed w/ family * cardiopulmonary cause for his dyspnea is ruled out * neuro consulted * will dc later today if neuro ok * medication reviewed as below * symptomatic treatment. Review of Systems - Review of Systems ENT: negative: Ear Pain, Ear Discharge, Nose Pain, Nose Discharge, Nose Congestion, Mouth Pain, Mouth Swelling, Throat Pain, Throat Swelling, Other Respiratory: negative: Cough, Dry, Shortness of Breath, Hemoptysis, SOB with Excertion, Pleuritic Pain, Sputum, Wheezing Cardiovascular: negative: chest pain, palpitations, orthopnea, paroxysmal nocturnal dyspnea, edema, light headedness, other Gastrointestinal: negative: Nausea, Vomiting, Abdominal Pain, Diarrhea, Constipation, Melena, Hematochezia, Other Genitourinary: negative: Dysuria, Frequency, Incontinence, Hematuria, Retention , Other Musculoskeletal: negative: Neck Pain, Shoulder Pain, Arm Pain, Back Pain, Hand Pain, Leg Pain, Foot Pain, Other Skin: negative: Rash, Lesions, Natanael, Bruising, Other - Medications/Allergies Allergies/Adverse Reactions: Allergies Allergy/AdvReac Type Severity Reaction Status Date / Time No Known Drug Allergies Allergy Verified 12/18/17 23:24 Medications: Current Medications Acetaminophen (Tylenol) 650 mg PO Q4H PRN PRN Reason: Headache/Fever or Pain Hydrocodone Bitart/Acetaminophen ([place] 5/325) 1 tab PO Q4H PRN PRN Reason: Moderate Pain (4-6) Al Hydroxide/Mg Hydroxide (Maalox) 15 ml PO Q4H PRN PRN Reason: Heartburn or Indigestion Artificial Tears (Tears Renewed 15ml Bottle) 0 drop EA EYE PRN PRN PRN Reason: Dry Eyes Enoxaparin Sodium (Lovenox) 40 mg SC 0900 [facility] Last Admin: 12/19/17 09:09 Dose: Not Given Famotidine (Pepcid) 20 mg PO BID [facility] Last Admin: 12/19/17 09:09 Dose: 20 mg Guaifenesin (Robitussin Sf) 200 mg PO Q4H PRN PRN Reason: Cough Hydralazine HCl (Apresoline) 10 mg SLOW IVP Q4H PRN PRN Reason: Systolic BP > 180 Sodium Chloride (Normal Saline 0.9%) 1,000 mls @ 100 mls/hr IV .Q10H [facility] Last Admin: 12/19/17 10:45 Dose: 1,000 mls Loperamide HCl (Imodium) 2 mg PO PRN PRN PRN Reason: Diarrhea/Loose Stools Loratadine (Claritin) 10 mg PO DAILYPRN PRN PRN Reason: Sinus Symptoms Magnesium Hydroxide (Milk Of Magnesium) 30 ml PO DAILYPRN PRN PRN Reason: Constipation Mineral Oil/White Petrolatum (Eucerin Cream) 0 gm TOP BIDPRN PRN PRN Reason: Dry Skin Ondansetron HCl (Zofran) 4 mg IVP Q6H PRN PRN Reason: Nausea/Vomiting Phenol (Chloraseptic [place] 180 Ml Bot) 0 ml PO PRN PRN PRN Reason: Sore Throat Prednisone (Prednisone) 10 mg PO QAM-WM [facility] Last Admin: 12/19/17 09:05 Dose: 10 mg Senna (Senokot) 2 tab PO HSPRN PRN PRN Reason: Constipation Sodium Chloride (Flush - Normal Saline) 10 ml IVF PRN PRN PRN Reason: Saline Flush Last Admin: 12/19/17 00:56 Dose: 10 ml Sodium Chloride ([place] Nasal [place] 0.65%) 0 ml EA NARE QIDPRN PRN PRN Reason: Nasal Congestion Temazepam (Restoril) 15 mg PO HSPRN PRN PRN Reason: Insomnia Trimethoprim/Sulfamethoxazole (Bactrim Ds) 1 tab PO BID [facility] Stop: 12/20/17 21:01 Last Admin: 12/19/17 09:05 Dose: 1 tab
[2017-12-19] MEDS: Acetaminophen 500 MG TAB PO SCH (13:01)
[2017-12-19] MEDS: Sodium Chloride 0.9% 500 ML IVPB SCH (13:02)
[2017-12-19] MEDS: diphenhydrAMINE 50 MG/ML VIAL IVP SCH (13:02)
[2017-12-19] MEDS: OCTAGAM IVPB SCH (13:49)
[2017-12-20] MEDS: Sodium Chloride 0.9% 1,000 ML IV SCH ×5 (03:00→20:45)
[2017-12-20] MEDS: Sulfameth/Trimethoprim DS 800-160mg TAB PO SCH ×2 (08:01→20:45)
[2017-12-20] MEDS: Famotidine 20 MG TAB PO SCH ×2 (08:01→20:45)
[2017-12-20] MEDS: predniSONE 5 MG TAB PO SCH (08:01)
[2017-12-20] MEDS: Enoxaparin Sodium 40 MG/0.4 ML SYRINGE SC SCH (08:01)
--- NOTE | 2017-12-20 09:36 | CON ---
DATE OF CONSULTATION: 12/19/2017 REFERRING PROVIDER: Lakhwinder Booth D.O. REASON FOR CONSULTATION: Myasthenia gravis exacerbation. HISTORY OF PRESENT ILLNESS: Mr. Carbone is a pleasant 27-year-old male with history of myasthe natanael gravis unknown to me from his previous admission as well as my clinic patient, he presents with w orsening weakness and difficulty with breathing. He reports that over the past 2-3 days, he has been having increasing weakness in his right upper and right lower extremity. He has also been having fa cial weakness where he is not able to puff his cheeks out and able to whistle. He is also having inc reasing difficulty with breathing. He had called my office on earlier part of the day today stating that he is having increasing difficulty with chest tightness and difficulty with breathing, which pro mpted for which reason I had asked him to present go to the emergency room for further evaluation. H kathryn reports that he has seen Dr. Clara Ramesh, neuromuscular specialist at the [facility] who agreed with the diagnosis of antibody negative myasthenia gravis. He recommended to continue with the pred nisone. He also recommended to have CT chest done. PAST MEDICAL HISTORY: Significant for myasthenia gravis. PAST SURGICAL HISTORY: None significant. SOCIAL HISTORY: He denies smoking, alcohol use, or illicit drug use. CURRENT MEDICATIONS: Please review MAR. ALLERGIES: No known drug allergies. FAMILY HISTORY: Noncontributory. REVIEW OF SYSTEMS: As mentioned above in the HPI, otherwise negative. PHYSICAL EXAMINATION: VITAL SIGNS: Blood pressure of 119/56, pulse of 77, temperature of 97.9, respirations of 18, O2 sats 94% room air. GENERAL: Well-developed, well-nourished male in no apparent distress. RESPIRATORY: Clear to auscultation bilaterally. CARDIOVASCULAR: Regular rate and rhythm. NEUROLOGIC: Mental status: The patient is awake, alert, oriented x3. Speech and language: Fluent speech. Cranial nerves: Pupils are 3 mm and reactive. Visual beatty are intact. External muscles are intact. No nystagmus is noted. There is a very mild ptosis noted in the left eyelid. He has a bilateral facial weakness, difficulty with talking . Tongue and uvula are midline. Motor exam showed normal tone and bulk with 5/5 strength in both upper and lower extremities except right proxi mal upper extremity has 4+/5 strength. He was only able to lift his arms outstretched for approximat kel 30 seconds. Sensory: Sensation is intact and symmetric. Deep tendon reflexes 2+ reflexes in marissa th upper and lower extremities. Babinski: Plantar responses flexion bilaterally. Coordination inta ct to [id number] and finger tapping bilaterally. Gait and Romberg are normal. LABORATORY DATA: Reviewed, which included CBC, coag panel, BMP, and urinalysis, which is significant for BUN of 12, creatinine of 1.38, otherwise unremarkable. IMPRESSION: 1. Myasthenia gravis exacerbation. 2. Bilateral facial weakness, due to #1. 3. Dyspnea on exertion, due to #1. Mr. Carbone is a pleasant 27-year-old male who has a history of myasthenia gravis, presented wi th increasing weakness in the right upper and lower extremities as well as facial weakness and diffic ulty with breathing and chest tightness. These symptoms are consistent with myasthenia gravis [facility]. I will start him on IVIG 400 mg/kg to be infused over 8 hours. We will be premedicated with Tylenol 500 mg p.o. and Benadryl 25 mg IV prior to each infusion. He will be receiving 2 doses of I VIG. I will also give him normal saline 500 mL bolus before and after each infusion. pulmona ry mechanics to look for and forced vital capacity. Once he receives 2 days of IVIG, he could be discharged home. I will obtain CT chest without contrast to evaluate for thymoma. He will follo w up with Dr. Cordova as outpatient in 4-6 weeks post-discharge. Thank you for the consultation.
--- NOTE | 2017-12-20 09:53 | CT ---
CT CHEST WITH IV CONTRAST: Date: 12/19/17 INDICATION: Concern for thymoma with history of myasthenia gravis. FINDINGS: No abnormal soft tissue mass is evident within the anterior mediastinum. No enlarged lymph nodes are evident. Small amount of fluid is seen within the superior pericardial recess. Heart and great vessels appear within normal limits. Visualized upper abdomen reveals no definite acute abnormality. No focal consolidation, pleural effusion, or pneumothorax is demonstrated. No definite acute osseous abnormality is evident. IMPRESSION: 1. No anterior mediastinal soft tissue mass is evident to suggest presence of thymoma. 2. No acute cardiopulmonary abnormality. POS: [facility]
--- NOTE | 2017-12-20 11:12 | PDOC.PN ---
- Subjective Encounter Start Date: 12/20/17 Encounter Start Time: 09:10 -: old records requested/rev Patient seen and examined. No new complaints. No overnight events pt feels subjectively better, less dyspnea, tolerating IV Ig - Objective Resuscitation Status: Resuscitation Status FULL:Full Resuscitation MAR Reviewed: Yes Vital Signs & Weight: Vital Signs (12 hours) Temp Pulse Resp BP Pulse Ox 12/20/17 08:00 98.3 F 60 18 94 L 12/20/17 07:03 98.3 F 60 18 138/77 94 L 12/20/17 04:00 97.5 F L 67 16 121/72 98 12/20/17 00:00 97.5 F L 73 18 130/80 95 Weight Weight 187 lb 7 oz I&O: 12/19/17 12/20/17 12/21/17 06:59 06:59 06:59 Intake Total 510 5057 Balance 510 5057 Result Diagrams: 12/19/17 04:41 12/19/17 04:41 Radiology Reviewed by me: Yes (CT chest reviewed) Phys Exam - Physical Examination Constitutional: NAD HEENT: PERRLA, moist MMs, sclera anicteric Neck: no JVD, supple Respiratory: no wheezing, no rales, no rhonchi Cardiovascular: RRR, no significant murmur, no rub Gastrointestinal: soft, non-tender, no distention, positive bowel sounds Musculoskeletal: no edema, pulses present Neurological: non-focal, normal sensation, moves all 4 limbs Lymphatic: no nodes Psychiatric: normal affect, A&O x 3 Skin: no rash, normal turgor Dx/Plan (1) Myasthenia gravis Code(s): G70.00 - MYASTHENIA GRAVIS WITHOUT (ACUTE) EXACERBATION Status: Chronic Comment: with exacerbation (2) Dyspnea Code(s): R06.00 - DYSPNEA, UNSPECIFIED Status: Acute Comment: due to 1 (3) Anxiety and depression Code(s): F41.9 - ANXIETY DISORDER, UNSPECIFIED; F32.9 - MAJOR DEPRESSIVE DISORDER, SINGLE EPISODE, UNSPECIFIED Status: Chronic - Plan cont current plan of care, plan discussed w/ family * medication reviewed as below * symptomatic treatment * continue IV Ig as per neurology * will discharge when neurology clears. Review of Systems - Review of Systems Eyes: negative: Pain, Vision Change, Conjunctivae Inflammation, Eyelid Inflammation, Redness, Other ENT: negative: Ear Pain, Ear Discharge, Nose Pain, Nose Discharge, Nose Congestion, Mouth Pain, Mouth Swelling, Throat Pain, Throat Swelling, Other Respiratory: negative: Cough, Dry, Shortness of Breath, Hemoptysis, SOB with Excertion, Pleuritic Pain, Sputum, Wheezing Cardiovascular: negative: chest pain, palpitations, orthopnea, paroxysmal nocturnal dyspnea, edema, light headedness, other Gastrointestinal: negative: Nausea, Vomiting, Abdominal Pain, Diarrhea, Constipation, Melena, Hematochezia, Other Genitourinary: negative: Dysuria, Frequency, Incontinence, Hematuria, Retention , Other Musculoskeletal: negative: Neck Pain, Shoulder Pain, Arm Pain, Back Pain, Hand Pain, Leg Pain, Foot Pain, Other Skin: negative: Rash, Lesions, Natanael, Bruising, Other - Medications/Allergies Allergies/Adverse Reactions: Allergies Allergy/AdvReac Type Severity Reaction Status Date / Time No Known Drug Allergies Allergy Verified 12/18/17 23:24 Medications: Current Medications Acetaminophen (Tylenol) 650 mg PO Q4H PRN PRN Reason: Headache/Fever or Pain Acetaminophen (Tylenol) 500 mg PO [facility] Stop: 12/21/17 13:01 Last Admin: 12/19/17 13:01 Dose: 500 mg Hydrocodone Bitart/Acetaminophen ([place] 5/325) 1 tab PO Q4H PRN PRN Reason: Moderate Pain (4-6) Al Hydroxide/Mg Hydroxide (Maalox) 15 ml PO Q4H PRN PRN Reason: Heartburn or Indigestion Artificial Tears (Tears Renewed 15ml Bottle) 0 drop EA EYE PRN PRN PRN Reason: Dry Eyes Diphenhydramine HCl (Benadryl) 25 mg IVP [facility] Stop: 12/21/17 13:01 Last Admin: 12/19/17 13:02 Dose: 25 mg Enoxaparin Sodium (Lovenox) 40 mg SC 0900 [facility] Last Admin: 12/20/17 08:01 Dose: Not Given Famotidine (Pepcid) 20 mg PO BID [facility] Last Admin: 12/20/17 08:01 Dose: 20 mg Guaifenesin (Robitussin Sf) 200 mg PO Q4H PRN PRN Reason: Cough Hydralazine HCl (Apresoline) 10 mg SLOW IVP Q4H PRN PRN Reason: Systolic BP > 180 Sodium Chloride (Normal Saline 0.9%) 1,000 mls @ 100 mls/hr IV .Q10H [facility] Last Admin: 12/20/17 03:00 Dose: 1,000 mls Immune Globulin 20 gm/ Immune (Globulin 5 gm/ Device) 250 mls @ 31.25 mls/hr IVPB Q24HR [facility] Stop: 12/20/17 20:59 Last Admin: 12/19/17 13:49 Dose: 250 mls Sodium Chloride (Normal Saline 0.9%) 500 mls @ 0 mls/hr IVPB [facility] Stop: 12/21/17 23:59 Last Admin: 12/19/17 13:02 Dose: 500 mls Loperamide HCl (Imodium) 2 mg PO PRN PRN PRN Reason: Diarrhea/Loose Stools Loratadine (Claritin) 10 mg PO DAILYPRN PRN PRN Reason: Sinus Symptoms Magnesium Hydroxide (Milk Of Magnesium) 30 ml PO DAILYPRN PRN PRN Reason: Constipation Mineral Oil/White Petrolatum (Eucerin Cream) 0 gm TOP BIDPRN PRN PRN Reason: Dry Skin Ondansetron HCl (Zofran) 4 mg IVP Q6H PRN PRN Reason: Nausea/Vomiting Phenol (Chloraseptic [place] 180 Ml Bot) 0 ml PO PRN PRN PRN Reason: Sore Throat Prednisone (Prednisone) 10 mg PO QAM-[facility] Last Admin: 12/20/17 08:01 Dose: 10 mg Senna (Senokot) 2 tab PO HSPRN PRN PRN Reason: Constipation Sodium Chloride (Flush - Normal Saline) 10 ml IVF PRN PRN PRN Reason: Saline Flush Last Admin: 12/19/17 00:56 Dose: 10 ml Sodium Chloride ([place] Nasal [place] 0.65%) 0 ml EA NARE QIDPRN PRN PRN Reason: Nasal Congestion Temazepam (Restoril) 15 mg PO HSPRN PRN PRN Reason: Insomnia Trimethoprim/Sulfamethoxazole (Bactrim Ds) 1 tab PO BID [facility] Stop: 12/20/17 21:01 Last Admin: 12/20/17 08:01 Dose: 1 tab
[2017-12-20] MEDS: Acetaminophen 500 MG TAB PO SCH (13:24)
[2017-12-20] MEDS: Sodium Chloride 0.9% 500 ML IVPB SCH (13:24)
[2017-12-20] MEDS: diphenhydrAMINE 50 MG/ML VIAL IVP SCH (13:24)
[2017-12-20] MEDS: OCTAGAM IVPB SCH (14:03)
[2017-12-21 07:17] VITALS: BP 126/71; TEMP 98.3
[2017-12-21] MEDS: Famotidine 20 MG TAB PO SCH (08:26)
[2017-12-21] MEDS: predniSONE 5 MG TAB PO SCH (08:26)
[2017-12-21] MEDS: Enoxaparin Sodium 40 MG/0.4 ML SYRINGE SC SCH (08:27)
--- NOTE | 2017-12-21 11:00 | PDOC.PN ---
- Subjective Encounter Start Date: 12/21/17 Encounter Start Time: 09:30 Patient seen and examined. No new complaints. No overnight events - Objective Resuscitation Status: Resuscitation Status FULL:Full Resuscitation MAR Reviewed: Yes Vital Signs & Weight: Vital Signs (12 hours) Temp Pulse Resp BP Pulse Ox 12/21/17 08:00 98.3 F 68 16 93 L 12/21/17 07:13 98.3 F 68 16 126/71 93 L Weight Weight 187 lb 7 oz I&O: 12/20/17 12/21/17 12/22/17 06:59 06:59 06:59 Intake Total 5057 3131 Balance 5057 3131 Result Diagrams: 12/19/17 04:41 12/19/17 04:41 Phys Exam - Physical Examination Constitutional: NAD HEENT: PERRLA, moist MMs, sclera anicteric Neck: no JVD, supple Respiratory: no wheezing, no rales, no rhonchi Cardiovascular: RRR, no significant murmur, no rub Gastrointestinal: soft, non-tender, no distention, positive bowel sounds Musculoskeletal: no edema, pulses present Neurological: non-focal, normal sensation, moves all 4 limbs Psychiatric: normal affect, A&O x 3 Skin: no rash, normal turgor Dx/Plan (1) Myasthenia gravis Code(s): G70.00 - MYASTHENIA GRAVIS WITHOUT (ACUTE) EXACERBATION Status: Chronic Comment: with exacerbation (2) Dyspnea Code(s): R06.00 - DYSPNEA, UNSPECIFIED Status: Acute Comment: due to 1 (3) Anxiety and depression Code(s): F41.9 - ANXIETY DISORDER, UNSPECIFIED; F32.9 - MAJOR DEPRESSIVE DISORDER, SINGLE EPISODE, UNSPECIFIED Status: Chronic - Plan cont current plan of care * medication reviewed as below * symptomatic treatment * see my discharge andres. Review of Systems - Review of Systems ENT: negative: Ear Pain, Ear Discharge, Nose Pain, Nose Discharge, Nose Congestion, Mouth Pain, Mouth Swelling, Throat Pain, Throat Swelling, Other Respiratory: negative: Cough, Dry, Shortness of Breath, Hemoptysis, SOB with Excertion, Pleuritic Pain, Sputum, Wheezing Cardiovascular: negative: chest pain, palpitations, orthopnea, paroxysmal nocturnal dyspnea, edema, light headedness, other Gastrointestinal: negative: Nausea, Vomiting, Abdominal Pain, Diarrhea, Constipation, Melena, Hematochezia, Other Genitourinary: negative: Dysuria, Frequency, Incontinence, Hematuria, Retention , Other Musculoskeletal: negative: Neck Pain, Shoulder Pain, Arm Pain, Back Pain, Hand Pain, Leg Pain, Foot Pain, Other - Medications/Allergies Allergies/Adverse Reactions: Allergies Allergy/AdvReac Type Severity Reaction Status Date / Time No Known Drug Allergies Allergy Verified 12/18/17 23:24 Medications: Current Medications Acetaminophen (Tylenol) 650 mg PO Q4H PRN PRN Reason: Headache/Fever or Pain Acetaminophen (Tylenol) 500 mg PO WILLCALL [facility] Stop: 12/21/17 13:01 Last Admin: 12/20/17 13:24 Dose: 500 mg Hydrocodone Bitart/Acetaminophen ([place] 5/325) 1 tab PO Q4H PRN PRN Reason: Moderate Pain (4-6) Al Hydroxide/Mg Hydroxide (Maalox) 15 ml PO Q4H PRN PRN Reason: Heartburn or Indigestion Artificial Tears (Tears Renewed 15ml Bottle) 0 drop EA EYE PRN PRN PRN Reason: Dry Eyes Diphenhydramine HCl (Benadryl) 25 mg IVP WILLCALL [facility] Stop: 12/21/17 13:01 Last Admin: 12/20/17 13:24 Dose: 25 mg Enoxaparin Sodium (Lovenox) 40 mg SC 0900 [facility] Last Admin: 12/21/17 08:27 Dose: Not Given Famotidine (Pepcid) 20 mg PO BID [facility] Last Admin: 12/21/17 08:26 Dose: 20 mg Guaifenesin (Robitussin Sf) 200 mg PO Q4H PRN PRN Reason: Cough Hydralazine HCl (Apresoline) 10 mg SLOW IVP Q4H PRN PRN Reason: Systolic BP > 180 Sodium Chloride (Normal Saline 0.9%) 1,000 mls @ 100 mls/hr IV .Q10H [facility] Last Admin: 12/20/17 20:45 Dose: 1,000 mls Sodium Chloride (Normal Saline 0.9%) 500 mls @ 0 mls/hr IVPB WILLCALL [facility] Stop: 12/21/17 23:59 Last Admin: 12/20/17 13:24 Dose: 500 mls Loperamide HCl (Imodium) 2 mg PO PRN PRN PRN Reason: Diarrhea/Loose Stools Loratadine (Claritin) 10 mg PO DAILYPRN PRN PRN Reason: Sinus Symptoms Magnesium Hydroxide (Milk Of Magnesium) 30 ml PO DAILYPRN PRN PRN Reason: Constipation Mineral Oil/White Petrolatum (Eucerin Cream) 0 gm TOP BIDPRN PRN PRN Reason: Dry Skin Ondansetron HCl (Zofran) 4 mg IVP Q6H PRN PRN Reason: Nausea/Vomiting Phenol (Chloraseptic [place] 180 Ml Bot) 0 ml PO PRN PRN PRN Reason: Sore Throat Prednisone (Prednisone) 10 mg PO QAM[facility] Last Admin: 12/21/17 08:26 Dose: 10 mg Senna (Senokot) 2 tab PO HSPRN PRN PRN Reason: Constipation Sodium Chloride (Flush - Normal Saline) 10 ml IVF PRN PRN PRN Reason: Saline Flush Last Admin: 12/19/17 00:56 Dose: 10 ml Sodium Chloride ([place] Nasal [place] 0.65%) 0 ml EA NARE QIDPRN PRN PRN Reason: Nasal Congestion Temazepam (Restoril) 15 mg PO HSPRN PRN PRN Reason: Insomnia
--- NOTE | 2017-12-21 15:09 | ADD-DIS ---
Please see my discharge summary dictated on 12/19/2017. This patient mainly admitted for dyspnea on exertion. He has underlying myasthenia gravis. His negative inspiratory force was -60. Dr. Renetta vogel was suspecting that patient has myasthenia gravis exacerbation. The patient was having motor wea kness. He was requiring IV immunoglobulin therapy. Initially, he was in observation status, and he was planned for discharge, but as there was change in discharge plan with keeping him here in hospita for another couple of days for IV IgG, that is why we changed to inpatient status. We transferred him to medical floor. The patient has finished IV immunoglobulin therapy as per Neurology recommenda tion. The patient is doing very well. He is on room air. He is feeling much better. We did a CT c hest that was negative for any thymoma. The patient is seen and examined at bedside today. Plan of care discussed with the patient in detail . His vitals are stable. His examination is normal. For more details, please see my discharge summ kevin from 12/19/2017.
--- NOTE | 2017-12-21 20:23 | EKG ---
Test Reason : Blood Pressure : / mmHG Vent. Rate : 076 BPM Atrial Rate : 076 BPM P-R Int : 132 ms QRS Dur : 086 ms QT Int : 378 ms P-R-T Axes : 056 056 004 degrees QTc Int : 425 ms Poor data quality, interpretation may be adversely affected Normal sinus rhythm with sinus arrhythmia Possible Left atrial enlargement Septal infarct , age undetermined Abnormal ECG Confirmed by IMAN STERN DO ([id number]), newspaper copy editor SARY PEREYRA ([id number]) on 12/21/2017 8:23:28 PM Referred By: Confirmed By:IMAN STERN DO
== END 2017-12-21 11:26 | disposition home or self-care (01) | DRG 57 ==
LOC: ERS 16:24 → OBSVTOIN 22:28 → 2SW 22:28 → T4-A 12-19 16:43
PROVIDERS: ADMIT Hospitalist; ATTEND Hospitalist
DX: G70.01 Myasthenia gravis with (acute) exacerbation (principal); H01.9 Unspecified inflammation of eyelid; F41.9 Anxiety disorder, unspecified; F32.9 Major depressive disorder, single episode, unspecified; N28.9 Disorder of kidney and ureter, unspecified
CPT/HCPCS: 36415; 71046; 71260; 80048; 81001; 82550; 85025; 85379; 93005; 94150; J1200; J1568; J1650

== ENCOUNTER 2018-03-20 14:04 | Observation (INO) | payer OTHER ==
[2018-03-20 14:55] LABS: #Eosinphils 0.2 thou/uL (0.0-0.7); #Lymphocytes 2.3 thou/uL (1.20-3.40); #Monocytes 0.6 thou/uL (0.11-0.59); #Neutrophils 3.9 thou/uL (1.40-6.50); %Basophils 0.4 % (0.0-1.0); %Eosinophils 2.2 % (0.0-10.0); %Monocytes 8.8 % (0.0-10.0); %Neutrophils 55.6 % (42.0-75.0); Hemoglobin 16.4 g/dL (14.0-18.0); Mean Corpuscular HGB CONC 34.4 g/dL (32.0-36.0); Mean Corpuscular Hemoglobin 33.6 pg (27.0-31.0); Mean Corpuscular Volume 97.7 fL (78.0-98.0); Mean Platelet Volume 8.3 fL (7.4-10.4); Platelet Count 255 thou/uL (130-400); RBC Distribution Width 11.3 % (11.5-14.5); Red Blood Cell (RBC) Count 4.88 mill/uL (4.70-6.10)
[2018-03-20 15:17] LABS: ALT (SGPT) 62 U/L (8-55); AST (SGOT) 36 U/L (5-34); Albumin 4.5 g/dL (3.5-5.0); Alkaline Phosphatase 80 U/L (40-150); Anion Gap 11 mmol/L (10-20); BUN (Urea Nitrogen) 10 mg/dL (8.9-20.6); Bilirubin, Total 0.5 mg/dL (0.2-1.2); Calc. Creatinine Clearance 0 mL/min (70-130); Calcium 9.5 mg/dL (7.8-10.44); Carbon Dioxide 30 mmol/L (22-29); Chloride 102 mmol/L (98-107); Estimated GFR-MDRD 84; Globulin 3.4 g/dL (2.4-3.5); Glucose 104 mg/dL (70-105); Potassium 4.2 mmol/L (3.5-5.1); Protein, Total 7.9 g/dL (6.0-8.3); Sodium 139 mmol/L (136-145)
--- NOTE | 2018-03-20 18:24 | RAD ---
TWO VIEWS CHEST: 03/20/18 PROVIDED CLINICAL HISTORY: Cough. FINDINGS: Comparison 12/18/17. Cardiac and mediastinal silhouette is within normal limits. Lungs appear clear. No pleural fluid or p neumothorax apparent. IMPRESSION: No evidence for an acute cardiopulmonary process. POS: OFF
[2018-03-20] MEDS ORDERED: Acetaminophen 500 MG TAB PO PRN (19:08)
[2018-03-20] MEDS ORDERED: Ondansetron ODT 4 MG TAB PO PRN (19:08)
[2018-03-20] MEDS ORDERED: Ondansetron PF 4 MG/2 ML Vial IVP PRN (19:08)
[2018-03-20] MEDS: Sodium Chloride 0.9% 1,000 ML IV SCH (21:24)
[2018-03-20] MEDS: Famotidine 20 MG TAB PO SCH (21:35)
[2018-03-20] MEDS: Pyridostigmine Bromide IR 60 MG TAB PO SCH (21:35)
[2018-03-20 23:30] VITALS: BMI 30.9
[2018-03-21] MEDS: Diabetic Tussin 200 MG/10 ML UDCUP PO PRN ×2 (01:25→11:59)
[2018-03-21] MEDS: Sodium Chloride 0.9% 1,000 ML IV SCH (06:14)
[2018-03-21 06:42] LABS: Eosinophils 1 % (0-10); Hemoglobin 14.7 g/dL (14.0-18.0); Lymphocytes 35 % (21-51); MDiff Complete? YES; Mean Corpuscular HGB CONC 34.2 g/dL (32.0-36.0); Mean Corpuscular Hemoglobin 33.5 pg (27.0-31.0); Mean Platelet Volume 8.6 fL (7.4-10.4); Monocytes 6 % (0-10); Neutrophil 58 % (42-75); PLT Morphology Comment Appears Adequate; Platelet Count 229 thou/uL (130-400); RBC Distribution Width 11.1 % (11.5-14.5); RBC Morphology Normal; Red Blood Cell (RBC) Count 4.39 mill/uL (4.70-6.10); White Blood Cell (WBC) Count 7.6 thou/uL (4.8-10.8)
[2018-03-21 06:55] LABS: ALT (SGPT) 46 U/L (8-55); AST (SGOT) 27 U/L (5-34); Albumin 3.7 g/dL (3.5-5.0); Alkaline Phosphatase 85 U/L (40-150); Anion Gap 8 mmol/L (10-20); BUN (Urea Nitrogen) 7 mg/dL (8.9-20.6); Bilirubin, Total 0.3 mg/dL (0.2-1.2); Calc. Creatinine Clearance 139 mL/min (70-130); Calcium 8.7 mg/dL (7.8-10.44); Carbon Dioxide 29 mmol/L (22-29); Chloride 107 mmol/L (98-107); Estimated GFR-MDRD Greater than 90; Globulin 2.9 g/dL (2.4-3.5); Glucose 102 mg/dL (70-105); Potassium 3.7 mmol/L (3.5-5.1); Protein, Total 6.6 g/dL (6.0-8.3); Sodium 140 mmol/L (136-145)
[2018-03-21] MEDS: Pyridostigmine Bromide IR 60 MG TAB PO SCH (07:57)
[2018-03-21] MEDS: Famotidine 20 MG TAB PO SCH (07:57)
[2018-03-21 11:20] VITALS: BP 113/65; TEMP 98
--- NOTE | 2018-03-24 15:03 | HP ---
PRIMARY CARE PROVIDER: Hermelinda Arellano MD. CHIEF COMPLAINT: General weakness. HISTORY OF PRESENT ILLNESS: This is a 27-year-old male who presents to [facility] Emergency Department, complaining of increasing general weakness over the last 24 hours. The patient admits to history of myasthenia gravis, diagnosed in July 2017, treated with pyridostigmine bromide 60 mg as needed. The patient states he typically does not have to take the medication on a regular basis, only as needed. The patient admits to recent viral illness in the last week and typically has noted increased weakness when he has a viral illness. The patient states that he has had some nausea, vomiting, abdominal pain with diarrhea. The patient denies any family members with similar symptoms, documented fever, recent trauma or injury. The patient admits to some increased cough and nonproductive of sputum. The patient denied any recent vaccination exposure or recent influenza vaccination. In the emergency room, the patient was evaluated with stable vital signs and chest imaging showing no acute infiltrate. PAST MEDICAL HISTORY: 1. Myasthenia gravis, on current pyridostigmine. 2. Migraine headaches. PAST SURGICAL HISTORY: Reviewed and negative. CURRENT MEDICATIONS: Pyridostigmine 60 mg as needed. ALLERGIES: NO KNOWN DRUG ALLERGIES. FAMILY HISTORY: No inheritable diseases per the patient's report. SOCIAL HISTORY: The patient denies any current alcohol, tobacco, or illicit drug use. Accompanied by his mother in the hospital. REVIEW OF SYSTEMS: CONSTITUTIONAL: Negative for weight loss or gain, ability to conduct usual activities. SKIN: Negative for rash, itching. EYES: Negative for double vision, pain. ENT/MOUTH: Negative for nose bleeding, neck stiffness, pain, tenderness. CARDIOVASCULAR: Negative for palpitations, dyspnea on exertion, orthopnea. RESPIRATORY: Negative for shortness of breath, wheezing, cough, hemoptysis, fever or night sweats. GASTROINTESTINAL: Negative for poor appetite, abdominal pain, heartburn, nausea, vomiting, constipation, or diarrhea. GENITOURINARY: Negative for urgency, frequency, dysuria, nocturia. MUSCULOSKELETAL: Negative for pain, swelling. NEUROLOGIC/PSYCHIATRIC: Negative for anxiety, depression. ALLERGY/IMMUNOLOGIC: Negative for skin rash, bleeding tendency. Otherwise negative except as stated per HPI. PHYSICAL EXAMINATION: VITAL SIGNS: On admission, blood pressure 135/59, pulse 73, respiratory rate 16, temperature 98.2 degrees Fahrenheit, O2 saturation 97% on room air. GENERAL APPEARANCE: This is a 27-year-old male, alert and oriented x3, pleasant, conversant, in no acute distress. HEENT: Pupils are equal, round and reactive to light and accommodation. Extraocular muscles are intact. No scleral icterus. Nares patent. OP is clear. NECK: Supple. No cervical adenopathy. No thyromegaly. No carotid bruits. No JVD noted. Cervical spine with full active and passive range of motion. No meningeal signs noted. CHEST: Lungs are clear to auscultation bilaterally. CARDIOVASCULAR: S1 and S2 without noted murmur, rub, or gallop. ABDOMEN: Flat, soft, nontender and nondistended. Bowel sounds are positive. EXTREMITIES: Warm and dry with fair turgor. No clubbing, cyanosis, or asymmetric edema appreciated. Capillary refill is less than 2 seconds. NEUROLOGIC: Cranial nerves 2 through 12 are grossly intact. No facial asymmetry. No focal findings. PERTINENT LAB AND X-RAY FINDINGS: Sodium 139, potassium 4.2, chloride 102, CO2 of 30, BUN 10, creatinine 1.04, estimated GFR of 84, glucose 104, calcium 9.5. AST 36, ALT 62, alkaline phosphatase 80. Albumin 4.5. CBC showed a white blood cell count of 7.0, hemoglobin 16.4, hematocrit 48, and platelet count 255 with normal differential. Portable chest x-ray dated 03/20/2018 by my interpretation shows no acute cardiopulmonary process. ASSESSMENT AND PLAN: 1. Myasthenia gravis. The patient will be observed on the medical floor. Questionable mild flare. We will resume pyridostigmine 60 mg b.i.d. We will hold steroids at this time and monitor clinical response. Continue intravenous normal saline at 100 mL/hour. 2. Generalized weakness. Suspect multifactorial in conjunction with likely viral syndrome. See #1 above. 3. Transaminitis, mild. We will repeat LFTs in the a.m. 4. Prophylaxis. SCDs while on bed. Pepcid 20 mg p.o. b.i.d. 5. Code status is full. Surrogate medical decision maker is the patient's mother. Job ID: [id number]
== END 2018-03-21 15:06 | disposition home or self-care (01) ==
LOC: ERS 14:04 → ONC 18:54
PROVIDERS: ADMIT Family Medicine; ATTEND Family Medicine
DX: G70.00 Myasthenia gravis without (acute) exacerbation (principal); R74.0 Nonspecific elevation of levels of transaminase and lactic acid dehydrogenase [LDH]; G43.909 Migraine, unspecified, not intractable, without status migrainosus
CPT/HCPCS: 36415; 71046; 80053; 85007; 85025; 85027; 96360; 96361; G0378; Q0162

== ENCOUNTER 2018-07-08 11:26 | Emergency (ER) | payer OTHER ==
[2018-07-08 12:02] LABS: #Eosinphils 0.1 thou/uL (0.0-0.7); #Lymphocytes 2.1 thou/uL (1.20-3.40); #Monocytes 0.5 thou/uL (0.11-0.59); #Neutrophils 2.5 thou/uL (1.40-6.50); %Basophils 0.5 % (0.0-1.0); %Eosinophils 2.3 % (0.0-10.0); %Lymphocytes 40.1 % (21.0-51.0); %Monocytes 9.9 % (0.0-10.0); %Neutrophils 47.2 % (42.0-75.0); Hemoglobin 16.2 g/dL (14.0-18.0); Mean Corpuscular HGB CONC 33.5 g/dL (32.0-36.0); Mean Corpuscular Hemoglobin 32.3 pg (27.0-31.0); Mean Corpuscular Volume 96.6 fL (78.0-98.0); Mean Platelet Volume 8.6 fL (7.4-10.4); Platelet Count 250 thou/uL (130-400); RBC Distribution Width 11.3 % (11.5-14.5); Red Blood Cell (RBC) Count 5.01 mill/uL (4.70-6.10); White Blood Cell (WBC) Count 5.3 thou/uL (4.8-10.8)
[2018-07-08 12:24] LABS: ALT (SGPT) 53 U/L (8-55); AST (SGOT) 33 U/L (5-34); Albumin 4.5 g/dL (3.5-5.0); Alkaline Phosphatase 79 U/L (40-150); Anion Gap 8 mmol/L (10-20); BUN (Urea Nitrogen) 10 mg/dL (8.9-20.6); Bilirubin, Total 0.4 mg/dL (0.2-1.2); Calc. Creatinine Clearance 0 mL/min (70-130); Calcium 9.6 mg/dL (7.8-10.44); Carbon Dioxide 30 mmol/L (22-29); Chloride 103 mmol/L (98-107); Estimated GFR-MDRD 84; Globulin 3.1 g/dL (2.4-3.5); Glucose 86 mg/dL (70-105); Lipase 8 U/L (8-78); Potassium 4.1 mmol/L (3.5-5.1); Protein, Total 7.6 g/dL (6.0-8.3); Sodium 137 mmol/L (136-145)
[2018-07-08] MEDS ORDERED: Ondansetron PF 4 MG/2 ML Vial ONE (18:47)
[2018-07-08 18:57] LABS: Bilirubin Negative (Negative); Blood, Urine Negative (Negative); Clarity CLEAR (Clear); Glucose, Urine (Dipstick) Negative (Negative); Leukocyte Negative (Negative); Nitrite Negative (Negative); Protein, Urine (Dipstick) Negative (Neg-Trace); Specific Gravity, Urine 1.017 (1.002-1.036); Urobilinogen 0.2 mg/dL (0.2-1.0); pH, Urine 5.5 (5.0-9.0)
== END 2018-07-08 21:05 | disposition home or self-care (01) ==
LOC: ERS 11:26
DX: R11.2 Nausea with vomiting, unspecified (principal); R19.7 Diarrhea, unspecified; G43.909 Migraine, unspecified, not intractable, without status migrainosus
CPT/HCPCS: 36415; 80053; 81003; 83690; 85025; 96361; 96374; J2405

== ENCOUNTER 2020-12-09 21:28 | Emergency (ER) | payer BC, OTHER, SELFPAY ==
[2020-12-09] MEDS ORDERED: Dexamethasone 4 MG TAB ONE (23:16)
[2020-12-10 20:58] LABS: SARS-CoV-2 PCR by NAA Not Detected (NotDetected)
== END 2020-12-09 23:21 | disposition home or self-care (01) ==
LOC: ERS 21:28
DX: J02.9 Acute pharyngitis, unspecified (principal); Z20.822 Contact with and (suspected) exposure to COVID-19
CPT/HCPCS: 99283; J8540; U0003; U0005

== ENCOUNTER 2021-08-30 16:59 | Emergency (ER) | payer BC, SELFPAY ==
[2021-08-30 18:06] LABS: #Basophils 0.1 thou/uL (0.0-0.2); #Eosinphils 0.1 thou/uL (0.0-0.7); #Lymphocytes 2.7 thou/uL (1.20-3.40); #Monocytes 0.6 thou/uL (0.11-0.59); #Neutrophils 3.5 thou/uL (1.40-6.50); %Basophils 1.3 % (0.0-1.0); %Eosinophils 1.3 % (0.0-10.0); %Lymphocytes 39.1 % (21.0-51.0); %Monocytes 7.9 % (0.0-10.0); %Neutrophils 50.4 % (42.0-75.0); Hemoglobin 15.5 g/dL (14.0-18.0); Mean Corpuscular HGB CONC 34.5 g/dL (32.0-36.0); Mean Corpuscular Volume 98.4 fL (78.0-98.0); Mean Platelet Volume 8.8 fL (7.4-10.4); Platelet Count 267 thou/uL (130-400); RBC Distribution Width 11.8 % (11.5-14.5); Red Blood Cell (RBC) Count 4.55 mill/uL (4.70-6.10)
[2021-08-30 18:35] LABS: ALT (SGPT) 30 U/L (8-55); AST (SGOT) 26 U/L (5-34); Albumin 4.7 g/dL (3.5-5.0); Alkaline Phosphatase 67 U/L (40-110); Anion Gap 15 mmol/L (10-20); BUN (Urea Nitrogen) 11 mg/dL (8.9-20.6); Bilirubin, Total 0.7 mg/dL (0.2-1.2); Calc. Creatinine Clearance 0 mL/min (70-130); Calcium 9.4 mg/dL (7.8-10.44); Carbon Dioxide 22 mmol/L (22-29); Chloride 105 mmol/L (98-107); Globulin 3.3 g/dL (2.4-3.5); Glucose 94 mg/dL (70-105); Potassium 4.4 mmol/L (3.5-5.1); Sodium 138 mmol/L (136-145)
== END 2021-08-30 18:58 | disposition home or self-care (01) ==
LOC: ERS 16:59
DX: R07.89 Other chest pain (principal)
CPT/HCPCS: 71045; 80053; 84484; 85025; 93005

== ENCOUNTER 2023-06-12 08:29 | Emergency (ER) | payer BC ==
[2023-06-12] MEDS ORDERED: Acetaminophen 500 MG TAB ONE (10:43)
== END 2023-06-12 12:05 | disposition home or self-care (01) ==
LOC: ERS 08:29
DX: S93.401A Sprain of unspecified ligament of right ankle, initial encounter (principal); S93.601A Unspecified sprain of right foot, initial encounter; W18.31XA Fall on same level due to stepping on an object, initial encounter